=== PATIENT | female | born 2000 | race American Indian/Alaskan Native ===

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

== ENCOUNTER 2020-08-18 17:15 | Emergency (ER) | payer MEDICAID ==
--- NOTE | 2020-08-18 18:31 | XRay Report ---
CLINICAL DATA: PAIN TECHNICAL DATA: AP internal, AP external, and Y views were obtained of the shoulder. FINDINGS: There is no acute fracture. The glenoid fossa humeral head articulation is normal. There is no acromi oclavicular joint widening or offset. The coracoclavicular distance is normal. There are no significa nt degenerative changes. IMPRESSION: No acute radiographic abnormality. Signer Name: Tony Booth MD Signed: 08/18/2020 6:27 PM Workstation Name: [id number]
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
[2020-08-18 21:09] VITALS: BP 121/69
== END 2020-08-18 20:30 | disposition home or self-care (01) ==
LOC: ED 17:15
DX: M25.512 Pain in left shoulder (principal); Z87.891 Personal history of nicotine dependence; Z79.899 Other long term (current) drug therapy; Z88.8 Allergy status to other drugs, medicaments and biological substances
CPT/HCPCS: 99283